=== PATIENT | female | born 1990 | race Hispanic/Latino ===

== ENCOUNTER 2018-10-20 17:10 | Emergency (ER) | payer MEDICAID, OTHER | END 2018-10-20 17:44 | disposition home or self-care (01) | LOC: ERS 17:10 | DX: H10.022 Other mucopurulent conjunctivitis, left eye (principal); L03.213 Periorbital cellulitis | CPT/HCPCS: 99283 ==

== ENCOUNTER 2019-02-19 01:38 | Emergency (ER) | payer OTHER, SELFPAY ==
[2019-02-19 03:54] LABS: #Lymphocytes 0.8 thou/uL (1.20-3.40); #Monocytes 0.4 thou/uL (0.11-0.59); #Neutrophils 5.7 thou/uL (1.40-6.50); %Basophils 0.1 % (0.0-1.0); %Eosinophils 0.4 % (0.0-10.0); %Lymphocytes 11.8 % (21.0-51.0); %Monocytes 6.3 % (0.0-10.0); %Neutrophils 81.5 % (42.0-75.0); Hemoglobin 11.9 g/dL (12.0-16.0); Mean Corpuscular HGB CONC 34.9 g/dL (32.0-36.0); Mean Platelet Volume 8.5 fL (7.4-10.4); Platelet Count 184 thou/uL (130-400); RBC Distribution Width 13.4 % (11.5-14.5); Red Blood Cell (RBC) Count 3.97 mill/uL (4.20-5.40)
[2019-02-19] MEDS ORDERED: Acetaminophen 500 MG TAB ONE (06:13)
--- NOTE | 2019-02-19 07:26 | ULT ---
FIRST TRIMESTER OBSTETRICAL ULTRASOUND: Date: 02/19/19 INDICATION: Concern for ectopic or with history of vaginal bleeding and pelvic pain. FINDINGS: There is a single, live intrauterine gestation, with pole and yolk sac identified. The crown-ru mp length measured 6.35 cm, giving estimated gestational age of 12 weeks and 5 days. Cardiac activity is measured at 153 beats/minute. The mean sac diameter is 5.28 cm, giving an estimated gestational a ge of 11 weeks and 1 day. Placenta is anterior in location. Small 6.9 mm yolk sac is identified. No s ubchorionic hemorrhage is noted. Cervical length measured at 2.7 cm. No free fluid is identified. Vis ualized right and left adnexa appear sonographically normal with appropriate flow. IMPRESSION: Single, live intrauterine gestation. POS: [facility]
[2019-02-19 07:33] LABS: Bilirubin Negative (Negative); Blood, Urine Negative (Negative); Clarity CLEAR (Clear); Glucose, Urine (Dipstick) Negative (Negative); Leukocyte Negative (Negative); Nitrite Negative (Negative); Protein, Urine (Dipstick) Negative (Neg-Trace); Urobilinogen 0.2 mg/dL (0.2-1.0)
== END 2019-02-19 08:08 | disposition home or self-care (01) ==
LOC: ERS 01:38
DX: O20.0 Threatened abortion (principal); Z3A.12 12 weeks gestation of pregnancy
CPT/HCPCS: 36415; 76856; 81003; 84702; 85025; 86900; 86901; 93976